=== PATIENT | female | born 1995 | race Hispanic/Latino ===

== ENCOUNTER 2017-12-09 08:20 | Emergency (ER) | payer OTHER ==
[~2017-12-09] VITALS: Ht 157.5 cm; Wt 70.3 kg
--- NOTE | 2017-12-09 08:25 | ED GENERAL ADULT ---
History of Present Illness General Chief Complaint: Seizure Stated Complaint: RAPID RESPONSE ?SIEZURE Source: patient, family Exam Limitations: no limitations Vital Signs & Intake/Output Vital Signs & Intake/Output Vital Signs Date Time Temp Pulse Resp B/P B/P Pulse O2 O2 Flow FiO2 Mean Ox Delivery Rate 12/09 1205 98.0 80 20 113/61 100 Room Air 12/09 1026 98.1 71 20 107/66 100 Room Air 12/09 0918 66 20 99/52 100 Room Air 12/09 0848 100 Room Air 12/09 0829 64 20 99/55 98 Room Air 12/09 0822 97.9 64 18 95/40 99 Room Air Allergies Coded Allergies: NO KNOWN ALLERGIES (12/09/17) Reconcile Medications Sertraline HCl 50 MG TABLET 1 TAB PO DAILY DEPRESSION (Reported) Triage Nurses Notes Reviewed? yes Onset: Abrupt Duration: hour(s): Timing: recent history HPI: 12/09/17 8:35 AM 22-year-old female presents to the emergency department after a rapid response for syncope and a possible seizure. The patient was having her blood drawn in the outpatient lab and became unresponsive shortly afterwards. She had seizure- like activity that lasted for less than a minute. Now she is awake alert and oriented 3. She is recently been started on Zoloft. She denies any other medical history other than episodes of syncope in the past. Past History Travel History Traveled to [place] past 21 day No Medical History Any Pertinent Medical History? see below for history Neurological: SYNCOPE Surgical History Surgical History: none Psychosocial History What is your primary language [place]ic Family History Hx Contributory? No Review of Systems Review of Systems Constitutional: Denies: fever. EENTM: Denies: visual changes. Respiratory: Denies: short of breath. Cardiovascular: Denies: chest pain. GI: Denies: abdominal pain. Genitourinary: Reports: no symptoms. Musculoskeletal: Reports: no symptoms. Skin: Reports: no symptoms. Neurological/Psychological: Reports: see HPI. Hematologic/Endocrine: Reports: no symptoms. Immunologic/Allergic: Reports: no symptoms. Physical Exam Physical Exam General Appearance: well developed/nourished, alert, awake, anxious, moderate distress Head: atraumatic, normal appearance Eyes: Bilateral: normal appearance, PERRL, EOMI. Ears, Nose, Throat: normal pharynx, normal ENT inspection Neck: normal inspection, supple, full range of motion Respiratory: normal breath sounds, chest non-tender, no respiratory distress Cardiovascular: regular rate/rhythm Peripheral Pulses: 4+ radial (R), 4+ radial (L) Gastrointestinal: soft, non-tender Back: normal range of motion Extremities: normal range of motion Neurologic/Psych: awake, alert, oriented x 3 Skin: intact, normal color, warm/dry Core Measures ACS in differential dx? No CVA/TIA Diagnosis: No Sepsis Present: No Sepsis Focused Exam Completed? No Progress Differential Diagnoses I considered the following diagnoses in my evaluation of the patient: [Adverse drug reaction, seizure disorder, vasovagal syncope, anemia, ] Plan of Care: Orders Procedure Date/time Status Add-on Test (ER Only) 12/09 1148 Active CULTURE,URINE 12/09 09 Active URINALYSIS 12/09 0849 Complete Saline Lock 12/09 08 Active TROPONIN LEVEL 12/09 08 Complete PROLACTIN 12/09 08 Complete HUMAN BETA HCG SCREEN 12/09 828 Complete COMPREHENSIVE METABOLIC PANEL 12/09 828 Complete CBC WITHOUT DIFFERENTIAL 12/09 828 Complete EKG 12/09 0829 Active Laboratory Tests 12/09/17 0922: Urinalysis LIGHT H, Urine Color YEL, Urine Clarity HAZY H, Urine pH 6.0, Ur Specific [place] >= 1.030, Urine Protein 100 H, Urine Ketones NEG, Urine Nitrite NEG, Urine Bilirubin NEG, Urine Urobilinogen 0.2, Ur Leukocyte Esterase NEG, Ur Microscopic SEDIMENT EXAMINED, Urine RBC 1-3, Urine WBC 3-5 H, Ur Epithelial Cells MANY H, Urine Bacteria MANY H, Urine Mucus MANY H, Urine Hemoglobin NEG, Urine Glucose NEG 12/09/17 0912: Anion Gap 10, Estimated GFR > 60, BUN/Creatinine Ratio 15.7, Glucose 116 H, Calcium 8.1 L, Total Bilirubin 0.5, AST 17, ALT 29, Alkaline Phosphatase 58, Troponin I < 0.01, Total Protein 6.0 L, Albumin 3.2 L, Globulin 2.8, Albumin/ Globulin Ratio 1.1, Prolactin 82.4 H, Total Beta HCG NEGATIVE, CBC w Diff NO MAN DIFF REQ, RBC 3.87 L, MCV 85.8, MCH 29.1, MCHC 34.0, RDW 15.0 H, MPV 7.8, Gran % 73.4, Lymphocytes % 18.5 L, Monocytes % 6.5, Eosinophils % 1.1, Basophils % 0.5, Absolute Granulocytes 7.0 H, Absolute Lymphocytes 1.8, Absolute Monocytes 0.6, Absolute Eosinophils 0.1, Absolute Basophils 0.1 Microbiology 12/09 921 URINE ROUT: Urine Culture - RECD Initial ED EKG: PENDING Departure Departure Disposition: STILL A PATIENT Condition: Stable Clinical Impression Primary Impression: Syncope Referrals: Chicho Kevin MD (PCP/Family) Departure Forms: Customer Survey General Discharge Information Comments 12/09/17 11:52 AM Labs unremarkable. She did have an elevated prolactin. She is been on Zoloft only for a month. CT scan is negative.Will discharge and stop zoloft and follow -up with her doctor on Monday. Critical Care Note Critical Care Note Critical Care Time: 30-74 min
[2017-12-09] MEDS ORDERED: SERTRALINE HCL50 MG PO (08:29)
[2017-12-09 09:32] LABS: ABSOLUTE BASOPHIL COUNT 0.1 /CUMM (0.0-0.2); ABSOLUTE EOSINOPHIL COUNT 0.1 /CUMM (0.0-0.7); ABSOLUTE LYMPH COUNT 1.8 /CUMM (1.2-3.4); ABSOLUTE MONOCYTE COUNT 0.6 /CUMM (0.10-0.60); BASOPHIL % 0.5 % (0.0-2.0); EOSINOPHIL % 1.1 % (0-5); GRANULOCYTE % 73.4 % (42.2-75.2); HEMATOCRIT 33.2 % (37-47); MEAN CORPUSCULAR HGB 29.1 PG (27.0-31.0); MEAN CORPUSCULAR VOLUME 85.8 FL (81.0-99.0); MEAN PLATELET VOLUME 7.8 FL (7.4-10.4); PLATELET COUNT 274 /CUMM (130-400); RED BLOOD CELL CT 3.87 /CUMM (4.20-5.40); WHITE BLOOD CELL COUNT 9.6 /CUMM (4.8-10.8)
--- NOTE | 2017-12-09 10:47 | CT SCAN REPORT ---
EXAMINATION: CT HEAD WITHOUT CONTRAST CLINICAL INFORMATION: Syncope/seizure. COMPARISON: None TECHNIQUE: Contiguous axial imaging was performed from the skull base to vertex without intravenous administration of contrast. DLP: 544.6 mGy-cm FINDINGS: There is no evidence of acute intracranial hemorrhage or territorial infarction. No abnormal mass effect or midline shift is seen. [place] to white matter differentiation is well preserved. No extra-axial fluid collections are identified. The ventricles are normal in size. There is no abnormal attenuation within the brain parenchyma. The osseous structures and soft tissues are normal. The mastoid air cells and visualized portions of the paranasal sinuses are well aerated. IMPRESSION: No acute intracranial pathology.
[2017-12-09 12:05] VITALS: BP 113/61
== END 2017-12-09 12:24 ==
LOC: ERH 08:20
PROVIDERS: Emergency Medicine
DX: R55 Syncope and collapse (principal)
CPT/HCPCS: 81001; 87086; 93005; 93010; 96360